=== PATIENT | female | born 1980 | race Caucasian/White ===

== ENCOUNTER 2025-04-25 08:09 | Inpatient (IN) ==
--- NOTE | 2025-04-16 10:18 | Anesthesiology Consultation ---
Date of Service April 16, 2025 Assessment & Plan (1) Encounter for pre-operative examination: Plan - check BSG and urine test STAT am DOS. - tirzepatide instructions: Patient informed at PAT visit to stop 7 days prior to surgery- voiced understanding. Instructed last dose will be: (last dose). Patient advised to check with prescriber to see if alternative diabetic management changes recommended while holding tirzepatide-if so, patient to call back to PAT to update chart and discuss if any further preop medication instructions needed. - Per roller man on 04/16/25: No known infectious disease contacts, current infectious disease symptoms in past 10 days or COVID positive test result in the past 30 days. Chart Review Chart Review: Acceptable Risk for Surgery and Patient NOT seen in Pre Admission Testing History Surgery Operation Date: 04/25/25 10:00 Proposed Procedures p Total Abdominal Hysterectomy - Fly Ruvalcaba MD Height/Weight Height: 5 ft 5 in Weight: 68.039 kg Allergies Allergy/AdvReac Type Severity Reaction Status Date / Time theophylline Allergy Unknown unknown Verified 04/16/25 09:46 --- as a child acetaminophen AdvReac Intermediate Gastrointestinal Verified 04/16/25 09:46 Upset Medications Home Medications Medication Instructions Recorded Confirmed Last Taken famotidine 20 mg tablet 20 mg PO DAILY PRN Acid Reflux 10/11/23 04/16/25 11/03/23 omeprazole 40 mg capsule,delayed 40 mg PO HS 10/16/23 04/16/25 11/03/23 release sennosides 8.6 mg tablet 8.6 mg PO WK PRN Constipation 10/16/23 04/16/25 10/24/23 fluoxetine 10 mg capsule 10 mg PO QAM 04/16/25 04/16/25 Unknown propranolol 10 mg tablet 10 mg PO TID PRN Anxiety 04/16/25 04/16/25 Unknown tirzepatide 5 mg/0.5 mL 5 mg subcut Q7D 04/16/25 04/16/25 Unknown subcutaneous pen injector (Mounjaro) zolpidem 5 mg tablet 5 mg PO HS PRN Sleep 04/16/25 04/16/25 Unknown Past Medical History Medical History Diabetes mellitus, type 2 Tirzepatide weekly GERD (gastroesophageal reflux disease) History of asthma History of cholelithiasis gallbladder removed 2023 History of COVID-19 2020: severe flu-like symptoms > resolved Hx of melanoma of skin Facial- uses a chemotherapy cream Past Family History Family History Other Diabetes No family history of adverse response to anesthesia Past Surgical History Surgical History H/O hemorrhoidectomy 2021 H/O tubal ligation 2000 Hx of colonoscopy 2021 S/P laparoscopic cholecystectomy (11/07/23) Laparoscopic Cholecystectomy(Not Applicable) - Abner Son, DO Social History Smoking Status: Current every day smoker Smoking cigarettes per day: quit cigs 2022; vapes daily Do You Dip or Chew Tobacco: No Hx Alcohol Use: Yes Alcohol type: beer alcohol intake frequency: holidays/special occasions only Hx Substance Use: No substance use type: does not use Testing Laboratory Results 04/07/25 WBC: 8.1 H/H: PLATELETS: 271,000
[2025-04-25 08:28] LABS: Hematocrit (blood only) 43.8 % (37.0-47.0); Hemoglobin 14.7 g/dL (12.0-16.0); Immature Granulocytes # (auto) 0.02 K/uL (0.01-0.20); Immature Granulocytes % (auto) 0.3 %; Mean Corpuscular Hemoglobin 30.6 pg (25.0-34.0); Mean Corpuscular Volume 91.1 fL (80.0-100.0); Platelet Count 231 K/uL (130-400); RDW Standard Deviation 40.9 fL (36.4-46.3); Red Blood Count 4.81 M/uL (4.20-5.40); White Blood Count 7.05 K/ul (4.8-10.8)
[2025-04-25] MEDS: LR 500ML BOLUS, THEN 15ML/HR IV SCH (08:42)
[2025-04-25] MEDS ORDERED: LIDOCAINE 2% 2 ML VIAL/AMP(20MG/ML) INFIL ONE (08:46)
[2025-04-25] MEDS ORDERED: ONDANSETRON INJ 2 MG/ML 2 ML VIAL ONE (08:46)
[2025-04-25] MEDS ORDERED: DEXAMETHASONE SOD INJ 4 MG/ML VIAL ONE (08:46)
[2025-04-25] MEDS ORDERED: PROPOFOL IV EMULSION 10 MG/ML 20 ML VIAL IV ONE (08:47)
[2025-04-25] MEDS ORDERED: ROCURONIUM BROMIDE 10 MG/ML 5 ML VIAL IV ONE ×2 (08:47→11:38)
[2025-04-25] MEDS ORDERED: MIDAZOLAM HCL 1 MG/ML 2ML VIAL ONE (08:47)
[2025-04-25] MEDS ORDERED: DexMEDEtomidine HCL IV 100 MCG/ML VIAL IV ONE (08:52)
[2025-04-25] MEDS ORDERED: KETAMINE HCL 10MG/ML SYR ONE (08:55)
[2025-04-25] MEDS ORDERED: ACETAMINOPHEN 1000 MG/100 ML IV IV ONE (08:56)
[2025-04-25] MEDS: SCOPOLAMINE 1 MG/72 HR TDSY PATCH TD STA (09:45)
[2025-04-25] MEDS ORDERED: ONDANSETRON INJ 2 MG/ML 2 ML VIAL IV PRN ×2 (09:46→10:48)
[2025-04-25] MEDS ORDERED: PROMETHAZINE HCL 6.25 MG in SODIUM CHLORIDE 0.9% 50 ML IV PRN (09:46)
[2025-04-25] MEDS ORDERED: HYDROmorphone INJ 1 MG/ML SYRINGE IV PRN (09:46)
[2025-04-25] MEDS ORDERED: ATROPINE SULFATE 0.1 MG/ML 10ML SYR IV PRN (09:46)
[2025-04-25] MEDS ORDERED: MoRPHine SULFATE PF 1 MG/ML 10 ML AMP/VIAL ONE (09:53)
--- NOTE | 2025-04-25 09:53 | History & Physical Bridge Note ---
Date of Service April 25, 2025 History & Physical Bridge Note I have examined the patient, reviewed the History & Physical and in the interval since the performance of the History & Physical I have noted the following changes of clinical significance: no changes noted
[2025-04-25] MEDS: SCOPOLAMINE 1 MG/72 HR TDSY PATCH TD ONE (10:09)
[2025-04-25] MEDS ORDERED: NALOXONE HCL 0.08 MG in SYRINGE 1.8 ML IV PRN (10:48)
[2025-04-25] MEDS ORDERED: HYDROmorphone INJ 0.5 MG/0.5 ML SYR IV PRN (10:48)
[2025-04-25] MEDS ORDERED: NALBUPHINE HCL INJ 10 MG/ML AMP IV PRN (10:48)
[2025-04-25] MEDS ORDERED: NALOXONE HCL 0.4 MG/1 ML VIAL/CARP IV PRN (10:48)
[2025-04-25] MEDS ORDERED: PROMETHAZINE 6.25 MG/50.25 ML BAG IV PRN (10:48)
[2025-04-25] MEDS ORDERED: LACTATED RINGER'S 500 ML IV PRN (10:48)
[2025-04-25] MEDS ORDERED: MoRPHine SULFATE PF 1 MG/ML 10 ML AMP/VIAL INT SPINAL ONE (10:48)
[2025-04-25] MEDS ORDERED: diphenhydrAMINE 50 MG/ML VIAL IV PRN (10:48)
[2025-04-25] MEDS ORDERED: NALOXONE HCL 1 MG in SODIUM CHLORIDE 0.9% 1,000 ML IV PRN (10:48)
[2025-04-25] MEDS ORDERED: NO NARCOTICS OR SEDATIVES SCH (11:00)
[2025-04-25] MEDS ORDERED: DC INTRASPINAL MORPHINE SCH (11:00)
[2025-04-25] MEDS ORDERED: SODIUM CHLORIDE 0.9% 1,000 ML IV SCH (11:30)
[2025-04-25] MEDS ORDERED: SUGAMMADEX SODIUM 200 MG/2 ML VIAL IV ONE (12:24)
[2025-04-25] MEDS: HEPARIN (PORCINE) 1000 UNIT/ML 10 ML (CATH LAB USE ONLY) ONE (12:29)
--- NOTE | 2025-04-25 13:15 | Operative Report ---
Post Operative Report Pre & Post Diagnosis Operation Date: 04/25/25 10:00 Pre-Op Diagnosis: Symptomatic Uterine Fibroids and Severe Dysmenorrhea associated with monthly cycles Post-Op Diagnosis: Symptomatic Uterine Fibroids and Severe Dysmenorrhea associated with monthly cy deborah I identified the patient and participated in the time-out.: Yes Procedure Operation Date: 04/25/25 10:00 Actual Procedures p Total Abdominal Hysterectomy(Not Applicable) - Fly Ruvalcaba MD Surgeon Fly Ruvalcaba MD Optometric Coordinator Divine Bella Estimated Blood Loss 100 Findings Consistent with Post-Op Diagnosis Status post bilateral salpingectomy Specimens Uterus and cervix Drains Cook Sta drain with safety. Vaginal cuff Anesthesia Type General w/FOI & Regional Complications None Indications Pelvic pain severe dysmenorrhea Description of Procedure Patient was brought to the OR table correct identified by armband and conversation. General anesthesia was administered. The vagina was prepped with Betadine including the vaginal cuff. Lower abdomen was painted with an alcohol- based sterilizing solution and draped in usual sterile fashion. Timeout was taken. A Pfannenstiel incision was made on the abdomen. Hemostasis was secured by electrocauterization. Fascia was incised transversely from the underlying muscle by blunt and sharp dissection. Recti muscles were in the midline. Peritoneum was carefully raised and entered. An O'Rinku- O'Benavides self-retaining retractor was inserted into the incision. 4 laparotomy pads were used to pack off the bowel expose the pelvis. At this time a top normal size uterus was visualized. In both fallopian tubes had fallopian tube fragments on the. The fundus was grasped with a single-tooth tenaculum. The round ligaments were ligated proximally and distally and then cut free. An incision was made above the vesicouterine fold. The bladder was advanced out of the operative field. Posterior leaf of the broad ligament was punched through bluntly on both sides. The ovarian tube and ovarian ligament were clamped proximally and distally. They were then cut. The distal stumps were ligated with a transfixion suture of chromic catgut. And then a single silk suture proximal to this hemostasis. Following this the uterine vessels were skeletonized. Clamped with a curved Courtney. Cut with a stump. And then doubly ligated with a chromic gut suture the bladder was advanced on the field. Curved Courtney was used to clamp the cardinal ligaments on both the right and the left side by sliding off the cervix. Cutting with a stump. And then ligating with a Chromic Gut suture. This was done in 2 steps on each side because of the length of the cardinal ligament. The vaginal cuff was then entered with a cauterization knife and the surgical specimen was removed consistent uterus and cervix. Vaginal cuff clamped with a straight Courtney. Then the angles were suture-ligated. Cardinal ligament with a heavy chromic gut suture intact. The anterior posterior vaginal mucosa was approximated with an interrupted [id number] suture on each side anchored to the stump approximating the anterior posterior midportion of the vaginal leg was whipstitched open with a 2- 0 Chromic Gut suture. Uterosacral ligament on each side were then approximated with a heavy Vicryl suture placed in a [id number] fashion. Cook Sta drain with safety pin was placed in the vagina the other end was placed into the cul-de-sac. At this time hemostasis was good. Round ligaments were brought down and anchored to the cardinal ligaments on both the right and the left side then the peritoneum was approximated from the right adnexa to the middle and then from the left adnexa to the middle bearing the stumps and approximating the anterior posterior peritoneum she is Dr. Shepherd and tied to each other with the peritoneum covering the vaginal cuff. Pelvis was washed cleaned at this time hemostasis was excellent. The packs were removed. The retractor was removed. The peritoneum was closed with continuous Chromic Gut suture. Recti muscles were approximated interrupted [id number] suture chromic catgut. Fascia was closed with continuous interlocking suture of Vicryl on each side tied in the middle. Subcutaneous tissue was closed with a running plain wash incision out. Skin edges were approximated with caesar flex.. I attest to the content of the Intraoperative Record and any orders documented therein. Any exceptions are noted below. doctor's assistant was necessary to provide adequate exposure during the procedure and in order to provide safe surgery for the patient.
[2025-04-25] MEDS ORDERED: MAGNESIUM HYDROXIDE SUSP 30 ML UDC PO PRN (13:16)
[2025-04-25] MEDS ORDERED: KETOROLAC 30 MG/ML VIAL IV PRN (13:16)
[2025-04-25] MEDS ORDERED: PROPRANOLOL HCL 10 MG TAB PO PRN (13:20)
[2025-04-25] MEDS ORDERED: MEPERIDINE HCL 25 MG/ML CARP/VIAL ONE (13:33)
[2025-04-25] MEDS: MEPERIDINE HCL 25 MG/ML CARP/VIAL IV STA (13:35)
--- NOTE | 2025-04-25 13:40 | Anesthesiology Progress Note ---
Date of Service April 25, 2025 Anesthesia Post Procedure Vital Signs Vital Signs: Temp Pulse Pulse Resp BP Pulse Ox O2 Del Method 04/25/25 13:15 60 14 123/87 100 Room Air 04/25/25 13:05 66 16 127/81 100 Oxymask 04/25/25 12:58 36.2 C L 71 14 120/82 100 Oxymask 04/25/25 08:27 36.7 C 71 16 124/77 100 Room Air O2 Flow Rate 04/25/25 13:15 04/25/25 13:05 3 04/25/25 12:58 6 04/25/25 08:27 Pain Intensity Abdomen: Pain Intensity: 5 Transfer of Care Handoff Completed per policy Notes Mental Status: alert / awake / arousable and participated in evaluation Patient Amnestic to Procedure: Yes Nausea / Vomiting: adequately controlled Pain: adequately controlled Airway Patency, RR, SpO2: stable & adequate BP & HR: stable & adequate Hydration State: stable & adequate Anesthetic Complications: no major complications apparent and Pt Satisfied with anesthetic care
[2025-04-25] MEDS: CHECK SCOPOLAMINE PATCH PLACEMENT SCH (14:37)
[2025-04-26] MEDS: IBUPROFEN 600 MG TAB PO PRN (00:20)
[2025-04-26] MEDS ORDERED: ONDANSETRON INJ 2 MG/ML 2 ML VIAL IV PRN (04:47)
[2025-04-26] MEDS ORDERED: MEPERIDINE HCL 25 MG/ML CARP/VIAL IV PRN (04:47)
[2025-04-26 06:55] LABS: Hematocrit (blood only) 35.0 % (37.0-47.0); Hemoglobin 11.9 g/dL (12.0-16.0)
--- NOTE | 2025-04-26 10:00 | Obstetrical Progress Note ---
Date of Service April 26, 2025 Assessment & Plan Admission and Anticipated Discharge Date Admission Date: April 25, 2025 Subjective abdomen soft and non tender bowel sounds present bandage removed incision is clean and dry no calf tenderness vaginal bleeding scant hgb 11.9 Results & Data Vital Signs (Past 12 Hours) Vital Signs Temp Pulse Resp BP BP Pulse Ox O2 Del Method 04/26/25 09:30 99/52 L 04/26/25 08:00 36.7 C 66 18 83/54 L 96 Room Air 04/26/25 04:30 36.8 C 67 16 92/55 L 95 Room Air 04/26/25 04:00 16 95 04/26/25 03:00 15 94 04/26/25 01:58 16 95 04/26/25 01:00 16 94 04/26/25 00:00 37.0 C 67 16 93/54 L 97 Room Air 04/26/25 00:00 04/26/25 00:00 16 97 04/25/25 23:00 16 94 04/25/25 22:00 15 94 O2 Del Method 04/26/25 09:30 04/26/25 08:00 04/26/25 04:30 04/26/25 04:00 04/26/25 03:00 04/26/25 01:58 04/26/25 01:00 04/26/25 00:00 04/26/25 00:00 Room Air 04/26/25 00:00 04/25/25 23:00 04/25/25 22:00
[2025-04-26] MEDS: SENNA 8.6 MG TAB PO PRN (19:36)
[2025-04-27 09:14] VITALS: PULSE 84; RESP 16; TEMP 98.1; O2SAT 94
--- NOTE | 2025-04-27 09:40 | Obstetrical Progress Note ---
Date of Service April 27, 2025 Assessment & Plan Admission and Anticipated Discharge Date Admission Date: April 25, 2025 Subjective abdomen soft and non tender incision is clean and dry passing gas no calf tenderness ambulating well vaginal bleeding scant hgb 11.9 Results & Data Vital Signs (Past 12 Hours) Vital Signs Temp Pulse Resp BP Pulse Ox O2 Del Method 04/27/25 08:30 36.7 C 84 16 93/61 L 94 Room Air 04/26/25 22:59 36.9 C 73 18 94/60 L 96 Room Air
--- NOTE | 2025-04-27 09:45 | Discharge Summary ---
Date of Service April 27, 2025 Discharge Data Consultations 04/25/25 13:16 Consult Anesthesiology Routine Procedures Performed Operation Date: 04/25/25 10:00 Actual Procedures p Total Abdominal Hysterectomy(Not Applicable) - Fly Ruvalcaba MD Hospital Course (1) Pelvic pain: Patient is a 44-year-old female with a history of severe pelvic pain requiring several emergency room visits. Patient status post salpingectomy . Patient's status post endometrial ablation. Patient was diagnosed with a leiomyoma. Patient is having severe debilitating pelvic pain on a monthly basis lasting for sometimes up to 10 days at about the time she would have her period. Transvaginal ultrasound showed a intramural fibroid. Pelvic pain was presumed to be secondary to long-term effects of the endometrial ablation and the intramural fibroid. On the day of admission patient was taken to the OR where she underwent total abdominal hysterectomy with suspension of the vaginal cuff preservation of both ovaries. Surgery went well. Estimated blood loss was 100 mL. Her bowel sounds returned within 24 hours. At the time of discharge she was ambulating well eating well had no significant complaints. Her hemoglobin was 11.9. [place] drain with a safety pin was removed from the vaginal cuff. Patient was discharged with the usual instructions to call if she had a temperature over 100. Or any heavy bleeding. Patient was also discharged with a prescription for Percocet.
--- NOTE | 2025-04-27 09:46 | Obstetrical Progress Note ---
Date of Service April 27, 2025 Assessment & Plan Admission and Anticipated Discharge Date Admission Date: April 25, 2025 Subjective Prior to discharge the [place] drain with a safety pin was removed from the vaginal cuff. This was associated with a small amount of dark blood. Results & Data Vital Signs (Past 12 Hours) Vital Signs Temp Pulse Resp BP Pulse Ox O2 Del Method 04/27/25 08:30 36.7 C 84 16 93/61 L 94 Room Air 04/26/25 22:59 36.9 C 73 18 94/60 L 96 Room Air
[2025-04-27 09:49] VITALS: BP 99/52
[2025-04-28] MEDS ORDERED: REMOVE TRANSDERM-SCOP PATCH ONE (06:00)
== END 2025-04-27 10:20 | disposition home or self-care (01) | DRG 743 ==
LOC: ASU 08:09 → 4E1 13:27